=== PATIENT | female | born 1960 | race Two or more races ===

== ENCOUNTER 2021-02-10 06:30 | Outpatient (REF) | payer OTHER, SELFPAY ==
[2021-02-10 12:28] LABS: Alanine Aminotransferase 17 U/L (0-31); Albumin Level 4.2 g/dL (3.5-5.0); Alkaline Phosphatase 83 U/L (39-117); Anion Gap 15 (12-20); Aspartate Amino Transferase 19 U/L (5-31); Bilirubin Total 0.3 mg/dL (0.0-1.0); Blood Urea Nitrogen 15 mg/dL (9-16); Calcium 9.1 mg/dL (8.4-10.2); Carbon Dioxide 25 mmol/L (22-29); Chloride 107 mmol/L (96-108); Cholesterol 204 mg/dL; Estimated Glomerular Filt Rate > 60; Glucose Fasting 97 mg/dL (60-99); HDL Cholesterol 50 mg/dL; LDL Cholesterol Calculated 142 mg/dl; Potassium 4.3 mmol/L (3.3-5.1); Sodium 143 mmol/L (135-145); Total Protein 6.9 g/dL (6.5-8.0); Triglycerides 64 mg/dL
== END 2021-02-10 06:31 | disposition home or self-care (01) ==
LOC: HO.HMGCLDS 06:30
PROVIDERS: PCP Internal Medicine; Visit Provider Internal Medicine
DX: Z00.00 Encounter for general adult medical examination without abnormal findings (principal)
CPT/HCPCS: 36415; 80053; 80061

== ENCOUNTER 2021-09-30 06:20 | Outpatient (REF) | payer OTHER, SELFPAY ==
[2021-09-30 11:56] LABS: Alanine Aminotransferase 19 U/L (0-31); Albumin Level 4.1 g/dL (3.5-5.0); Alkaline Phosphatase 77 U/L (39-117); Anion Gap 13 (12-20); Aspartate Amino Transferase 17 U/L (5-31); Bilirubin Total 0.5 mg/dL (0.0-1.0); Blood Urea Nitrogen 13 mg/dL (9-16); Calcium 9.3 mg/dL (8.4-10.2); Carbon Dioxide 26 mmol/L (22-29); Chloride 105 mmol/L (96-108); Cholesterol 199 mg/dL; Estimated Glomerular Filt Rate > 60; Glucose Fasting 96 mg/dL (60-99); HDL Cholesterol 47 mg/dL; LDL Cholesterol Calculated 135 mg/dl; Potassium 4.4 mmol/L (3.3-5.1); Sodium 140 mmol/L (135-145); Triglycerides 87 mg/dL
[2021-09-30 12:06] LABS: Vitamin D 25-OH Total 25.8 ng/mL (>30)
== END 2021-09-30 06:21 | disposition home or self-care (01) ==
LOC: HO.HMGCLDS 06:20
PROVIDERS: PCP Internal Medicine; Visit Provider Internal Medicine
DX: Z00.00 Encounter for general adult medical examination without abnormal findings (principal); I10 Essential (primary) hypertension; E78.5 Hyperlipidemia, unspecified; E55.9 Vitamin D deficiency, unspecified
CPT/HCPCS: 36415; 80053; 80061; 82306

== ENCOUNTER 2022-02-19 11:01 | Outpatient (REF) | payer OTHER, SELFPAY ==
[2022-02-19 13:52] LABS: Hematocrit 43.2 % (37.0-47.0); Hemoglobin 13.9 g/dl (12.0-16.0); Mean Corpuscular HGB Conc 32.2 g/dl (31.0-35.0); Mean Corpuscular Hemoglobin 27.9 pg (27.0-33.0); Mean Corpuscular Volume 86.6 fL (80.0-98.0); Mean Platelet Volume 9.9 fL (9.4-12.3); Platelet Count 360 X10*3/uL (160-400); Red Blood Count 4.99 X10*6/uL (4.20-5.50); Red Cell Distribution Width 13.6 % (11.0-16.0); White Blood Count 9.3 X10*3/uL (4.8-10.8)
[2022-02-19 13:59] LABS: Appearance Urine TURBID; Color Urine YELLOW; Glucose Urine UA NEG (NEG); Leukocyte Esterase Urine NEG (NEG); Nitrite Urine NEG (NEG); PH 5.5 (5.0-8.0); Specific Gravity - Urine >= 1.030 (1.005-1.025); Urine Blood NEG (NEG); Urine Ketones NEG (NEG); Urine Protein NEG (NEG-TRACE)
[2022-02-19 14:05] LABS: Alanine Aminotransferase 22 U/L (0-31); Albumin Level 4.6 g/dL (3.5-5.0); Alkaline Phosphatase 86 U/L (39-117); Anion Gap 12 (12-20); Aspartate Amino Transferase 20 U/L (5-31); Bilirubin Total 0.6 mg/dL (0.0-1.0); Blood Urea Nitrogen 10 mg/dL (9-16); Calcium 9.8 mg/dL (8.4-10.2); Carbon Dioxide 27 mmol/L (22-29); Chloride 104 mmol/L (96-108); Cholesterol 252 mg/dL; Estimated Glomerular Filt Rate > 60; Glucose Fasting 93 mg/dL (60-99); HDL Cholesterol 56 mg/dL; LDL Cholesterol Calculated 182 mg/dl; Potassium 4.3 mmol/L (3.3-5.1); Sodium 139 mmol/L (135-145); Total Protein 7.9 g/dL (6.5-8.0); Triglycerides 74 mg/dL
[2022-02-19 14:09] LABS: Amorphous Sediment Urine 4+ /LPF; RBC Urine 0 /HPF (0); Squamous Epithelial Cell Urine TRACE /LPF; WBC Urine 0 /HPF (0-4)
[2022-02-19 14:21] LABS: TSH reflex Free T4 0.46 uIU/mL (0.32-4.0)
== END 2022-02-19 11:02 | disposition home or self-care (01) ==
LOC: HO.HMGCLDS 11:01
PROVIDERS: PCP Internal Medicine; Visit Provider Internal Medicine
DX: Z00.00 Encounter for general adult medical examination without abnormal findings (principal); E78.5 Hyperlipidemia, unspecified; I10 Essential (primary) hypertension
CPT/HCPCS: 36415; 80053; 80061; 81001; 84443; 85027

== ENCOUNTER 2022-08-14 06:33 | Outpatient (REF) | payer OTHER, SELFPAY ==
[2022-08-14 11:11] LABS: MANUAL DIFF FLAG NO
[2022-08-14 11:20] LABS: Basophils Percent Auto 0.4 % (0-2); Eosinophils Absolute Auto 0.1 X10*3/uL (0.0-0.4); Eosinophils Percent Auto 1.5 % (0-4); Hematocrit 42.8 % (37.0-47.0); Hemoglobin 13.9 g/dl (12.0-16.0); Imm Gran Abs Auto 0.05 X10*3/uL (0.00-0.03); Imm Gran Pct Auto 0.6 % (0.0-0.4); Lymphocytes Absolute Auto 2.2 X10*3/uL (1.2-4.9); Lymphocytes Percent Auto 25.9 % (20-40); Mean Corpuscular HGB Conc 32.5 g/dl (31.0-35.0); Mean Corpuscular Volume 86.3 fL (80.0-98.0); Monocytes Absolute Auto 0.7 X10*3/uL (0.1-1.2); Monocytes Percent Auto 8.7 % (2-11); Neutrophils Absolute Auto 5.4 x10*3/uL (2.0-8.3); Neutrophils Percent Auto 62.9 % (45-73); Platelet Count 325 X10*3/uL (160-400); Red Blood Count 4.96 X10*6/uL (4.20-5.50); Red Cell Distribution Width 13.4 % (11.0-16.0); White Blood Count 8.5 X10*3/uL (4.8-10.8)
[2022-08-14 11:29] LABS: Alanine Aminotransferase 15 U/L (0-31); Albumin Level 4.3 g/dL (3.5-5.0); Alkaline Phosphatase 73 U/L (39-117); Anion Gap 15 (12-20); Aspartate Amino Transferase 16 U/L (5-31); Blood Urea Nitrogen 14 mg/dL (9-16); Calcium 9.5 mg/dL (8.4-10.2); Carbon Dioxide 24 mmol/L (22-29); Chloride 105 mmol/L (96-108); Cholesterol 227 mg/dL; Estimated Glomerular Filt Rate > 60; Glucose Fasting 108 mg/dL (60-99); HDL Cholesterol 48 mg/dL; LDL Cholesterol Calculated 165 mg/dl; Potassium 4.3 mmol/L (3.3-5.1); Sodium 140 mmol/L (135-145); Total Protein 7.1 g/dL (6.5-8.0); Triglycerides 74 mg/dL
[2022-08-14 11:32] LABS: Bilirubin Total 0.4 mg/dL (0.0-1.0)
[2022-08-14 11:51] LABS: TSH reflex Free T4 0.48 uIU/mL (0.32-4.0)
== END 2022-08-14 06:34 | disposition home or self-care (01) ==
LOC: HO.HMGCLDS 06:33
PROVIDERS: PCP Internal Medicine; Visit Provider Internal Medicine
DX: Z00.00 Encounter for general adult medical examination without abnormal findings (principal); I10 Essential (primary) hypertension; E78.5 Hyperlipidemia, unspecified
CPT/HCPCS: 36415; 80053; 80061; 82306; 84443; 85025

== ENCOUNTER 2023-08-26 06:10 | Outpatient (REF) | payer OTHER, SELFPAY | END 2023-08-26 06:11 | disposition home or self-care (01) | LOC: HO.HMGCLDS 06:10 | PROVIDERS: PCP Internal Medicine; Visit Provider Internal Medicine | DX: Z00.00 Encounter for general adult medical examination without abnormal findings (principal); I10 Essential (primary) hypertension; E78.5 Hyperlipidemia, unspecified | CPT/HCPCS: 36415; 80053; 80061; 82306; 84443; 85025 ==

== ENCOUNTER 2023-08-31 11:12 | Outpatient (AMB) | payer OTHER, SELFPAY ==
[2023-08-31 11:29] VITALS: BP 128/78; PULSE 72; O2SAT 96; BMI 30.7
--- NOTE | 2023-08-31 11:29 | MHC.PC.OV ---
Vital Signs 08/31/23 11:29 Height 5 ft 6 in Weight 190 lb BMI 30.7 BP 128/78 Blood Pressure Location Lt brachial Position Sitting Pulse 72 Pulse Source Pulse Oximeter Pulse Oximetry (%) 96 Oxygen Delivery Method Room Air Intake Visit Reasons: Annual PE Intake Note: Pt is here today for PE. Allergies ampicillin [AMPICILLIN] Allergy (Unknown, Unverified 08/31/23 11:34) rash penicillin V Allergy (Unknown, Verified 08/31/23 11:34) rash Medication List - Last Reconciled 08/31/23 by Yolie Cordero MD amlodipine 10 mg PO DAILY baclofen 10 mg PO BEDTIME metoprolol tartrate 25 mg PO DAILY silver sulfadiazine 1% 1 appl topical BID triamcinolone acetonide 0.025% 1 appl topical BID Tobacco use date assessed: 08/31/23 Dental Screening Dental Screen Date: 08/31/23 Did you have a dental visit in the last 12 months?: Yes Did you have a dental problem in the last 6 months where you did not have access to dental care?: No Was dental information given to patient?: Patient has dentist HPI Annual PE HPI Details Pt presents for PE. [facility] Medical History Paronychia of right middle finger Colonoscopy refused Vitamin D deficiency Mammogram declined Normal Pap smear Hyperlipidemia Osteoarthritis Lower back pain Chronic insomnia HTN (hypertension) Annual physical exam Family History Father No problems noted. Mother No problems noted. Social History Housing: House Patient Tobacco Use Status: Never used Tobacco e-Cigarette/Vaping Use: Never Used Current occupational status: employed Cognitive needs: No Hearing needs: No Vision needs: Yes Questionnaire PHQ-9 Over the last 2 weeks, how often have you been bothered by any of the following problems? 1. Little interest or pleasure in doing things: not at all 2. Feeling down, depressed, or hopeless: not at all 3. Trouble falling or staying asleep, or sleeping too much: not at all 4. Feeling tired or having little energy: not at all 5. Poor appetite or overeating: not at all 6. Feeling bad about yourself - or that you are a failure or have let yourself or your family down: not at all 7. Trouble concentrating on things, such as reading the newspaper or watching television: not at all 8. Moving or speaking so slowly that other people could have noticed. Or the opposite - being so fidgety or restless that you have been moving around a lot more than usual: not at all 9. Thoughts that you would be better off or of hurting yourself in some way: not at all Total score: 0 Depression Screening Interpretation: Negative Depression Screening Done: Yes Source: Developed by Drs. Chris Peterson, Sylvia Templeton, Amari Maat and colleagues, with an educational nancy from [employer]. Thrive Questionnaire Date Thrive assessed: 08/31/23 I am a: Patient What is your living situation today?: I have a steady place to live Within the past 12 months, did the food you bought not last and you didn't have the money to get more?: Never true Within the past 12 months, did you worry whether your food would run out before you got money to buy more?: Never true Do you have trouble paying for medicines?: No Do you have trouble getting transportation to medical appointments?: No Do you have trouble paying your heating and electricity bill?: No Do you have trouble taking care of your child, family member or friend?: No Do you have trouble with day-to-day activities such as bathing, preparing meals, shopping, managing finances, etc.?: No Are you currently unemployed and looking for a job?: No Are you interested in more education?: No Please select the resources that you would like help with: None Currently or been in a relationship where the following occur: no concerns reported AUDIT C Alcohol Use Questionnaire (AUDIT-C) 1. How often do you have a drink containing alcohol?: Never 3. How often do you have six or more drinks on one occasion?: Never Total Score: 0 CLAU-7 AMB Questionnaire CLAU-7 Date CLAU - 7 assessed: 08/31/23 Feeling nervous, anxious, or on edge: 0 = Not at all Not being able to stop or control worryin = Not at all Worrying too much about different things: 0 = Not at all Trouble relaxin = Not at all Being so restless that it is hard to sit still: 0 = Not at all Becoming easily annoyed or irritable: 0 = Not at all Feeling afraid as if something awful might happen: 0 = Not at all Total CLAU-7 score (0-4 normal; 5-9 mild; 10-14 moderate; 15-21 severe): 0 Source: Developed by Drs. Chris Peterson, Sylvia Templeton, Amari Mata and colleagues, with an educational nancy from [employer]. Review of Systems Const All systems reviewed & are unremarkable except as noted in HPI and below Reports no additional complaints Eyes Reports no additional complaints ENT Reports no additional complaints Card Reports no additional complaints Resp Reports no additional complaints GI Reports no additional complaints Reports no additional complaints Physical exam (Primary Care) Vital Signs: Last Vital Signs Pulse 72 08/31/23 11:29 BP 128/78 08/31/23 11:29 Pulse Ox 96 08/31/23 11:29 Oxygen Delivery Method Room Air 08/31/23 11:29 BMI result Body Mass Index 30.7 Tobacco/Smoking Status: Tobacco use Status Tobacco use date assessed 08/31/23 08/31/23 11:36 Patient Tobacco Use Status Never used Tobacco 08/31/23 11:36 e-Cigarette/Vaping Use Never Used 08/31/23 11:29 PHQ-9: PHQ-9 Score PHQ-9: Total score 0 08/31/23 11:37 Depression Screening Interpretation: Negative Thrive Assessment: Date of Thrive Assessment Date Thrive assessed 08/31/23 08/31/23 11:36 Currently or been in a relationship where the following occur: no concerns reported Const General: no acute distress HENMT Face and sinus: Yes normal facial exam Throat: Yes posterior oropharynx normal Neck Neck: Yes no lymphadenopathy and Yes supple Chest Breast/axilla inspection: normal inspection of the breasts Breast/axilla palpation: normal palpation of the breasts and normal palpation of the axillae Resp Effort & Inspection: normal respiratory effort Auscultation: clear to auscultation bilaterally Cardio Rhythm: regular rhythm Heart sounds: S1 normal heart sound present and S2 normal heart sound present GI Inspection: Yes normal to inspection Palpation (GI): Soft to palpation Percussion: Yes normal to percussion Auscultation: normal bowel sounds Assessment and Plan Assessment & Plan (1) HTN (hypertension): Code(s): I10 - Essential (primary) hypertension Plan: cont current meds (2) Hyperlipidemia: Comment: Patient refused to take statins Code(s): E78.5 - Hyperlipidemia, unspecified Plan: cont low cholesterol diet (3) Annual physical exam: Comment: Patient refused mammogram and colonoscopy Code(s): Z00.00 - Encounter for general adult medical examination without abnormal findings Orders: Orders Lipid Panel 6 Months E78.5 - Hyperlipidemia, unspecified, I10 - Essential (primary) hypertension TSH reflex Free T4 6 Months E78.5 - Hyperlipidemia, unspecified, I10 - Essential (primary) hypertension Comprehensive [place]. Panel Fast 6 Months E78.5 - Hyperlipidemia, unspecified, I10 - Essential (primary) hypertension Coding Level of Care Code Est Pt Prev Care 40-64y(10753) Diagnoses HTN (hypertension) I10 Hyperlipidemia E78.5 Annual physical exam Z00.00
== END 2023-08-31 12:04 | disposition home or self-care (01) ==
PROVIDERS: Visit Provider Internal Medicine
DX: I10 Essential (primary) hypertension (principal); E78.5 Hyperlipidemia, unspecified; Z00.00 Encounter for general adult medical examination without abnormal findings
CPT/HCPCS: 99396

== ENCOUNTER 2024-02-23 06:46 | Outpatient (REF) | payer OTHER, SELFPAY ==
[2024-02-23 10:58] LABS: Alanine Aminotransferase 17 U/L (0-31); Albumin Level 3.9 g/dL (3.5-5.0); Alkaline Phosphatase 69 U/L (39-117); Anion Gap 11 (12-20); Aspartate Amino Transferase 16 U/L (5-31); Bilirubin Total 0.4 mg/dL (0.0-1.0); Blood Urea Nitrogen 12 mg/dL (9-16); Calcium 9.2 mg/dL (8.4-10.2); Carbon Dioxide 27 mmol/L (22-29); Chloride 107 mmol/L (96-108); Cholesterol 223 mg/dL (<200); Estimated Glomerular Filt Rate > 60; Glucose Fasting 100 mg/dL (60-99); HDL Cholesterol 56 mg/dL (>40); LDL Cholesterol Calculated 150 mg/dL (<100); Potassium 4.1 mmol/L (3.3-5.1); Sodium 141 mmol/L (135-145); Total Protein 7.2 g/dL (6.5-8.0); Triglycerides 85 mg/dL (<150)
[2024-02-23 11:14] LABS: TSH reflex Free T4 0.74 uIU/mL (0.32-4.0)
== END 2024-02-23 06:47 | disposition home or self-care (01) ==
LOC: HO.HMGCLDS 06:46
PROVIDERS: PCP Internal Medicine; Visit Provider Internal Medicine
DX: I10 Essential (primary) hypertension (principal); E78.5 Hyperlipidemia, unspecified
CPT/HCPCS: 36415; 80053; 80061; 84443

== ENCOUNTER 2024-02-27 10:43 | Outpatient (AMB) | payer OTHER, SELFPAY ==
[2024-02-27 10:45] VITALS: BP 134/74; PULSE 71; O2SAT 98; BMI 31.5
--- NOTE | 2024-02-27 10:45 | A.OFFPC_ITS ---
Vital Signs 02/27/24 10:45 Height 5 ft 6 in Weight 195 lb BMI 31.5 BP 134/74 Blood Pressure Location Lt brachial Position Sitting Pulse 71 Pulse Source Pulse Oximeter Pulse Oximetry (%) 98 Oxygen Delivery Method Room Air Intake Visit Reasons: 6 month HTN Intake Note: Pt is here today for 6 months follow up visit. Allergies ampicillin [AMPICILLIN] Allergy (Unknown, Unverified 02/27/24 10:45) rash penicillin V Allergy (Unknown, Verified 02/27/24 10:45) rash Medication List - Last Reconciled 02/27/24 by Yolie Cordero MD amlodipine 10 mg PO DAILY baclofen 10 mg PO BEDTIME metoprolol tartrate 25 mg PO DAILY silver sulfadiazine 1% 1 appl topical BID triamcinolone acetonide 0.025% 1 appl topical BID Tobacco use date assessed: 02/27/24 Dental Screening Dental Screen Date: 02/27/24 Did you have a dental visit in the last 12 months?: Yes Did you have a dental problem in the last 6 months where you did not have access to dental care?: No Was dental information given to patient?: Patient has dentist HPI 6 month HTN HPI Details Pt presents for f/u HTN, stable on meds PFSH Medical History (Updated 02/27/24 @ 11:24 by Yolie Cordero MD) Paronychia of right middle finger Colonoscopy refused Vitamin D deficiency Mammogram declined Normal Pap smear Hyperlipidemia Osteoarthritis Lower back pain Chronic insomnia HTN (hypertension) Annual physical exam Surgical History Hx of cholecystectomy Family History Father No problems noted. Mother No problems noted. Social History Housing: House Patient Tobacco Use Status: Never used Tobacco e-Cigarette/Vaping Use: Never Used service: No Current occupational status: employed Cognitive needs: No Hearing needs: No Vision needs: Yes Questionnaire Thrive Questionnaire Date Thrive assessed: 08/31/23 AUDIT C Alcohol Use Questionnaire (AUDIT-C) 1. How often do you have a drink containing alcohol?: Never 3. How often do you have six or more drinks on one occasion?: Never Total Score: 0 CLAU-7 AMB Questionnaire CLAU-7 Date CLAU - 7 assessed: 08/31/23 Source: Developed by Drs. Chris Peterson, Sylvia Templeton, Amari Mata and colleagues, with an educational nancy from [employer]. Review of Systems Const All systems reviewed & are unremarkable except as noted in HPI and below Reports no additional complaints Eyes Reports no additional complaints ENT Reports no additional complaints Card Reports no additional complaints Resp Reports no additional complaints GI Reports no additional complaints Reports no additional complaints Physical exam (Primary Care) Vital Signs: Last Vital Signs Pulse 71 02/27/24 10:45 BP 134/74 02/27/24 10:45 Pulse Ox 98 02/27/24 10:45 Oxygen Delivery Method Room Air 02/27/24 10:45 BMI result Body Mass Index 31.5 Tobacco/Smoking Status: Tobacco use Status Tobacco use date assessed 02/27/24 02/27/24 10:51 Patient Tobacco Use Status Never used Tobacco 02/27/24 10:51 e-Cigarette/Vaping Use Never Used 02/27/24 10:51 Thrive Assessment: Date of Thrive Assessment Date Thrive assessed 08/31/23 02/27/24 10:51 Const General: no acute distress HENMT Head: Yes normal to inspection Resp Effort & Inspection: normal respiratory effort Auscultation: clear to auscultation bilaterally Cardio Rhythm: regular rhythm Heart sounds: S1 normal heart sound present and S2 normal heart sound present GI Inspection: Yes normal to inspection Palpation (GI): Soft to palpation Percussion: Yes normal to percussion Assessment and Plan Assessment & Plan (1) Colonoscopy refused: Comment: 08/2021, 02/2024 Code(s): Z53.20 - Procedure and treatment not carried out because of patient's decision for unspecified reasons (2) Mammogram declined: Comment: 08/2021, 02/2024 Code(s): Z53.20 - Procedure and treatment not carried out because of patient's decision for unspecified reasons (3) Hyperlipidemia: Comment: Patient refused to take statins, 03/14 Code(s): E78.5 - Hyperlipidemia, unspecified Plan: Low-cholesterol diet increase physical activity weight loss discussed with the patient return for physical in 6 months with a fasting labs before (4) HTN (hypertension): Code(s): I10 - Essential (primary) hypertension Plan: Continue current medications (5) Vitamin D deficiency: Code(s): E55.9 - Vitamin D deficiency, unspecified Orders: Orders Lipid Panel 6 Months E55.9 - Vitamin D deficiency, unspecified, E78.5 - Hyperlipidemia, unspecified, I10 - Essential (primary) hypertension, Z00.00 - Encounter for general adult medical examination without abnormal findings Hemoglobin A1c 6 Months E55.9 - Vitamin D deficiency, unspecified, E78.5 - Hyperlipidemia, unspecified, I10 - Essential (primary) hypertension, Z00.00 - Encounter for general adult medical examination without abnormal findings Vitamin D 25-OH Total 6 Months E55.9 - Vitamin D deficiency, unspecified, E78.5 - Hyperlipidemia, unspecified, I10 - Essential (primary) hypertension, Z00.00 - Encounter for general adult medical examination without abnormal findings Comprehensive [place]. Panel Fast 6 Months E55.9 - Vitamin D deficiency, unspecified, E78.5 - Hyperlipidemia, unspecified, I10 - Essential (primary) hypertension, Z00.00 - Encounter for general adult medical examination without abnormal findings Complete Blood Count Auto Diff 6 Months E55.9 - Vitamin D deficiency, unspecified, E78.5 - Hyperlipidemia, unspecified, I10 - Essential (primary) hypertension, Z00.00 - Encounter for general adult medical examination without abnormal findings TSH reflex Free T4 6 Months E55.9 - Vitamin D deficiency, unspecified, E78.5 - Hyperlipidemia, unspecified, I10 - Essential (primary) hypertension, Z00.00 - Encounter for general adult medical examination without abnormal findings Coding Level of Care Code Est Pt Level 4 (50304) Diagnoses Colonoscopy refused Z53.20 Mammogram declined Z53.20 Hyperlipidemia E78.5 HTN (hypertension) I10 Vitamin D deficiency E55.9
== END 2024-02-27 11:31 | disposition home or self-care (01) ==
PROVIDERS: PCP Internal Medicine; Visit Provider Internal Medicine
DX: Z53.20 Procedure and treatment not carried out because of patient's decision for unspecified reasons (principal); E78.5 Hyperlipidemia, unspecified; I10 Essential (primary) hypertension; E55.9 Vitamin D deficiency, unspecified
CPT/HCPCS: 99214

== ENCOUNTER 2024-03-26 11:44 | Outpatient (AMB) | payer OTHER, SELFPAY ==
--- NOTE | 2024-03-26 11:45 | A.OFFPC_ITS ---
Vital Signs 03/26/24 11:46 Height 5 ft 6 in Weight 188 lb BMI 30.3 BP 124/80 Blood Pressure Location Lt brachial Position Sitting Pulse 63 Pulse Source Pulse Oximeter Pulse Oximetry (%) 95 Oxygen Delivery Method Room Air Intake Visit Reasons: L ear pain Intake Note: Pt is here today for a sick visit. Pt c/o L ear pain for last 2 days. Pt also states that she he as little cough. Allergies ampicillin [AMPICILLIN] Allergy (Unknown, Unverified 03/26/24 11:50) rash penicillin V Allergy (Unknown, Verified 03/26/24 11:50) rash Medication List - Last Reconciled 03/26/24 by Yolie Cordero MD amlodipine 10 mg PO DAILY baclofen 10 mg PO BEDTIME furosemide (Lasix) 20 mg PO DAILY metoprolol tartrate 25 mg PO DAILY silver sulfadiazine 1% 1 appl topical BID triamcinolone acetonide 0.025% 1 appl topical BID Tobacco use date assessed: 02/27/24 Dental Screening Dental Screen Date: 02/27/24 HPI L ear pain HPI Details Pt c/o 1 week productive cough, nasal congestion, and left ear feeling blocked. She denies fever pleurisy ear pain. Patient has been taking [id number] cough medications with good relief. Hypertension is controlled on current medications [facility] Medical History Paronychia of right middle finger Colonoscopy refused Vitamin D deficiency Mammogram declined Normal Pap smear Hyperlipidemia Osteoarthritis Lower back pain Chronic insomnia HTN (hypertension) Annual physical exam Surgical History Hx of cholecystectomy Family History Father No problems noted. Mother No problems noted. Social History Housing: House Patient Tobacco Use Status: Never used Tobacco e-Cigarette/Vaping Use: Never Used service: No Current occupational status: employed Cognitive needs: No Hearing needs: No Vision needs: Yes Questionnaire Thrive Questionnaire Date Thrive assessed: 08/31/23 CLAU-7 AMB Questionnaire CLAU-7 Date CLAU - 7 assessed: 08/31/23 Source: Developed by Sylvia Crane B.W. Jareth, Amari Mata and colleagues, with an educational nancy from [employer]. Review of Systems Const All systems reviewed & are unremarkable except as noted in HPI and below ENT Reports no additional complaints Card Reports no additional complaints Resp Reports no additional complaints GI Reports no additional complaints Reports no additional complaints Physical exam (Primary Care) Vital Signs: Last Vital Signs Pulse 63 03/26/24 11:46 BP 124/80 03/26/24 11:46 Pulse Ox 95 03/26/24 11:46 Oxygen Delivery Method Room Air 03/26/24 11:46 BMI result Body Mass Index 30.3 Tobacco/Smoking Status: Tobacco use Status Tobacco use date assessed 02/27/24 03/26/24 11:50 Patient Tobacco Use Status Never used Tobacco 03/26/24 11:50 e-Cigarette/Vaping Use Never Used 03/26/24 11:50 Thrive Assessment: Date of Thrive Assessment Date Thrive assessed 08/31/23 03/26/24 11:50 Const General: no acute distress HENMT Head: Yes normal to inspection Ears: TM's normal bilaterally General nose exam: Abnormal mucous membranes and turbinates present erythematous Face and sinus: Yes normal facial exam and No sinus tenderness Throat: Yes posterior oropharynx normal Neck Neck: Yes no lymphadenopathy Resp Effort & Inspection: normal respiratory effort Auscultation: clear to auscultation bilaterally Cardio Rhythm: regular rhythm Heart sounds: S1 normal heart sound present and S2 normal heart sound present Assessment and Plan Assessment & Plan (1) URI (upper respiratory infection): Code(s): J06.9 - Acute upper respiratory infection, unspecified Plan: SUPPORTIVE CARE DISCUSSED WITH THE PATIENT (2) HTN (hypertension): Code(s): I10 - Essential (primary) hypertension Plan: Continue current medications Medications: New furosemide (Lasix) 20 mg PO DAILY 20 tabs 0RF Coding Level of Care Code Est Pt Level 3 (72093) Diagnoses URI (upper respiratory infection) J06.9 HTN (hypertension) I10
[2024-03-26 11:46] VITALS: BP 124/80; PULSE 63; O2SAT 95; BMI 30.3
== END 2024-03-26 15:09 | disposition home or self-care (01) ==
LOC: HO.HMGC 11:44
PROVIDERS: PCP Internal Medicine; Visit Provider Internal Medicine
DX: J06.9 Acute upper respiratory infection, unspecified (principal); I10 Essential (primary) hypertension
CPT/HCPCS: 99213

== ENCOUNTER 2024-09-11 06:14 | Outpatient (REF) | payer OTHER, SELFPAY ==
[2024-09-11 10:11] LABS: MANUAL DIFF FLAG NO
[2024-09-11 10:17] LABS: Basophils Percent Auto 0.5 % (0-2); Eosinophils Absolute Auto 0.3 X10*3/uL (0.0-0.4); Eosinophils Percent Auto 3.3 % (0-4); Hematocrit 41.3 % (37.0-47.0); Hemoglobin 13.2 g/dl (12.0-16.0); Imm Gran Abs Auto 0.05 X10*3/uL (0.00-0.03); Imm Gran Pct Auto 0.6 % (0.0-0.4); Lymphocytes Absolute Auto 2.6 X10*3/uL (1.2-4.9); Lymphocytes Percent Auto 29.6 % (20-40); Mean Corpuscular Hemoglobin 27.8 pg (27.0-33.0); Mean Corpuscular Volume 87.1 fL (80.0-98.0); Mean Platelet Volume 10.1 fL (9.4-12.3); Monocytes Absolute Auto 0.6 X10*3/uL (0.1-1.2); Monocytes Percent Auto 7.4 % (2-11); Neutrophils Absolute Auto 5.1 x10*3/uL (2.0-8.3); Neutrophils Percent Auto 58.6 % (45-73); Platelet Count 331 X10*3/uL (160-400); Red Blood Count 4.74 X10*6/uL (4.20-5.50); Red Cell Distribution Width 13.4 % (11.0-16.0); White Blood Count 8.7 X10*3/uL (4.8-10.8)
[2024-09-11 10:55] LABS: Alanine Aminotransferase 17 U/L (0-31); Albumin Level 4.1 g/dL (3.5-5.0); Alkaline Phosphatase 77 U/L (39-117); Anion Gap 12 (12-20); Aspartate Amino Transferase 26 U/L (5-31); Bilirubin Total 0.5 mg/dL (0.0-1.0); Blood Urea Nitrogen 13 mg/dL (9-16); Calcium 9.7 mg/dL (8.4-10.2); Carbon Dioxide 26 mmol/L (22-29); Chloride 109 mmol/L (96-108); Cholesterol 203 mg/dL (<200); Estimated Glomerular Filt Rate > 60; Glucose Fasting 93 mg/dL (60-99); HDL Cholesterol 50 mg/dL (>40); LDL Cholesterol Calculated 136 mg/dL (<100); Potassium 4.1 mmol/L (3.3-5.1); Sodium 143 mmol/L (135-145); Total Protein 7.1 g/dL (6.5-8.0); Triglycerides 87 mg/dL (<150)
[2024-09-11 11:01] LABS: Estimated Average Glucose 108 mg/dL; Hemoglobin A1C 176.1078 umol/L; Hemoglobin A1c % 5.4 % (<6.0); Total Hemoglobin (HGBA1C) 5007.5056 umol/L
[2024-09-11 11:02] LABS: TSH reflex Free T4 0.91 uIU/mL (0.32-4.0); Vitamin D 25-OH Total 42.7 ng/mL (>30)
== END 2024-09-11 06:15 | disposition home or self-care (01) ==
LOC: HO.HMGCLDS 06:14
PROVIDERS: PCP Internal Medicine; Visit Provider Internal Medicine
DX: Z00.00 Encounter for general adult medical examination without abnormal findings (principal); I10 Essential (primary) hypertension; E78.5 Hyperlipidemia, unspecified; E55.9 Vitamin D deficiency, unspecified
CPT/HCPCS: 36415; 80053; 80061; 82306; 83036; 84443; 85025

== ENCOUNTER 2024-09-13 10:13 | Outpatient (AMB) | payer OTHER, SELFPAY ==
[2024-09-13 11:37] VITALS: BP 128/74; PULSE 68; O2SAT 96; BMI 29.9
--- NOTE | 2024-09-13 11:37 | A.OFFPC_ITS ---
Vital Signs 09/13/24 11:37 Height 5 ft 6 in Weight 185 lb BMI 29.9 BP 128/74 Blood Pressure Location Lt brachial Position Sitting Pulse 68 Pulse Source Pulse Oximeter Pulse Oximetry (%) 96 Oxygen Delivery Method Room Air Intake Visit Reasons: Annual PE Intake Note: Pt is here today for PE. Allergies ampicillin [AMPICILLIN] Allergy (Unknown, Unverified 09/13/24 11:38) rash penicillin V Allergy (Unknown, Verified 09/13/24 11:38) rash Medication List - Last Reconciled 09/13/24 by Yolie Cordero MD amlodipine 10 mg PO DAILY baclofen 10 mg PO BEDTIME furosemide (Lasix) 20 mg PO DAILY metoprolol tartrate 25 mg PO DAILY silver sulfadiazine 1% 1 appl topical BID triamcinolone acetonide 0.025% 1 appl topical BID Tobacco use date assessed: 09/13/24 Dental Screening Dental Screen Date: 02/27/24 HPI Annual PE HPI Details Pt presents for PE. [facility] Medical History Paronychia of right middle finger Colonoscopy refused Vitamin D deficiency Mammogram declined Normal Pap smear Hyperlipidemia Osteoarthritis Lower back pain Chronic insomnia HTN (hypertension) Annual physical exam Surgical History Hx of cholecystectomy Family History Father No problems noted. Mother No problems noted. Social History Housing: House Patient Tobacco Use Status: Never used Tobacco e-Cigarette/Vaping Use: Never Used service: No Current occupational status: employed Cognitive needs: No Hearing needs: No Vision needs: Yes Questionnaire PHQ-9 Over the last 2 weeks, how often have you been bothered by any of the following problems? 1. Little interest or pleasure in doing things: not at all 2. Feeling down, depressed, or hopeless: not at all 3. Trouble falling or staying asleep, or sleeping too much: not at all 4. Feeling tired or having little energy: not at all 5. Poor appetite or overeating: not at all 6. Feeling bad about yourself - or that you are a failure or have let yourself or your family down: not at all 7. Trouble concentrating on things, such as reading the newspaper or watching television: not at all 8. Moving or speaking so slowly that other people could have noticed. Or the opposite - being so fidgety or restless that you have been moving around a lot more than usual: not at all 9. Thoughts that you would be better off or of hurting yourself in some way: not at all Total score: 0 Depression Screening Interpretation: Negative Depression Screening Done: Yes 33279 - PHQ-9 Billing: Yes Source: Developed by Drs. Chris Peterson, Sylvia Templeton, Amari Mata and colleagues, with an educational nancy from [employer]. Thrive Questionnaire Date Thrive assessed: 09/13/24 I am a: Patient What is your living situation today?: I have a steady place to live Within the past 12 months, did the food you bought not last and you didn't have the money to get more?: I choose not to answer this question Within the past 12 months, did you worry whether your food would run out before you got money to buy more?: I choose not to answer this question Do you have trouble paying for medicines?: I choose not to answer this question Do you have trouble getting transportation to medical appointments?: I choose not to answer this question Do you have trouble paying your heating and electricity bill?: I choose not to answer this question Do you have trouble taking care of your child, family member or friend?: I choose not to answer this question Do you have trouble with day-to-day activities such as bathing, preparing meals, shopping, managing finances, etc.?: I choose not to answer this question Are you currently unemployed and looking for a job?: I choose not to answer this question Are you interested in more education?: I choose not to answer this question Please select the resources that you would like help with: None Currently or been in a relationship where the following occur: I choose not to answer THRIVE Score: 0 AUDIT C Alcohol Use Questionnaire (AUDIT-C) 1. How often do you have a drink containing alcohol?: Never Total Score: 0 CLAU-7 AMB Questionnaire CLAU-7 Date CLAU - 7 assessed: 09/13/24 Feeling nervous, anxious, or on edge: 0 = Not at all Not being able to stop or control worryin = Not at all Worrying too much about different things: 0 = Not at all Trouble relaxin = Not at all Being so restless that it is hard to sit still: 0 = Not at all Becoming easily annoyed or irritable: 0 = Not at all Feeling afraid as if something awful might happen: 0 = Not at all Total CLAU-7 score (0-4 normal; 5-9 mild; 10-14 moderate; 15-21 severe): 0 Source: Developed by Drs. Chris Peterson, Sylvia Templeton, Amari Mata and colleagues, with an educational nancy from [employer]. CLAU-7 Assessment Billing CLAU-7 Assessment Tool: CLAU-7 Assessment 88560 Review of Systems Const All systems reviewed & are unremarkable except as noted in HPI and below Reports no additional complaints Eyes Reports no additional complaints ENT Reports no additional complaints Card Reports no additional complaints Resp Reports no additional complaints GI Reports no additional complaints Reports no additional complaints Physical exam (Primary Care) Vital Signs: Last Vital Signs Pulse 68 09/13/24 11:37 BP 128/74 09/13/24 11:37 Pulse Ox 96 09/13/24 11:37 Oxygen Delivery Method Room Air 09/13/24 11:37 BMI result Body Mass Index 29.9 Tobacco/Smoking Status: Tobacco use Status Tobacco use date assessed 09/13/24 09/13/24 11:41 Patient Tobacco Use Status Never used Tobacco 09/13/24 11:38 e-Cigarette/Vaping Use Never Used 09/13/24 11:38 PHQ-9: PHQ-9 Score PHQ-9: Total score 0 09/13/24 12:07 Depression Screening Interpretation: Negative Thrive Assessment: Date of Thrive Assessment Date Thrive assessed 09/13/24 09/13/24 11:41 Currently or been in a relationship where the following occur: I choose not to answer Const General: no acute distress HENMT Head: Yes normal to inspection Ears: hearing grossly normal bilaterally Face and sinus: Yes normal facial exam Eyes General: appearance normal, both eyes and all related structures Resp Effort & Inspection: normal respiratory effort Auscultation: clear to auscultation bilaterally Cardio Rhythm: regular rhythm Heart sounds: S1 normal heart sound present and S2 normal heart sound present GI Inspection: Yes normal to inspection Palpation (GI): Soft to palpation Percussion: Yes normal to percussion Auscultation: normal bowel sounds Coding Level of Care Code Est Pt Prev Care 40-64y(77635) Diagnoses HTN (hypertension) I10 Hyperlipidemia E78.5 Annual physical exam Z00.00 Additional Codes CLAU-7 Assessment Billing - CLAU-7 Assessment Tool: CLAU-7 Assessment 96897 ([id number]) Assessment & Plan Assessment & Plan (1) HTN (hypertension): Code(s): I10 - Essential (primary) hypertension Category: Medical Plan: Continue current medications (2) Hyperlipidemia: Comment: Patient refused to take statins, 03/14 Code(s): E78.5 - Hyperlipidemia, unspecified Category: Medical Plan: Low-cholesterol diet increase physical activity weight loss discussed with the patient (3) Annual physical exam: Comment: Patient refused mammogram and colonoscopy Code(s): Z00.00 - Encounter for general adult medical examination without abnormal findi ngs Category: Medical Plan: Well-balanced diet regular physical activity discussed with the patient. She refused mammogram and colonoscopy Orders: Orders Comprehensive [place]. Panel Fast 6 Months E78.5 - Hyperlipidemia, unspecified, I10 - Essential (primary) hypertension Lipid Panel 6 Months E78.5 - Hyperlipidemia, unspecified, I10 - Essential (primary) hypertension Medications: Refilled amlodipine at bedtime 10 mg PO DAILY 90 tabs 3RF metoprolol tartrate take 1 tablet by mouth daily with food 25 mg PO DAILY 90 tabs 3RF Discontinued silver sulfadiazine 1% apply a 1.5 mm thickness Discontinued Reason: Doctor's Order 1 appl topical BID 50 grams 0RF baclofen Discontinued Reason: Doctor's Order 10 mg PO BEDTIME 30 tabs 0RF
== END 2024-09-13 14:43 | disposition home or self-care (01) ==
PROVIDERS: PCP Internal Medicine; Visit Provider Internal Medicine
DX: I10 Essential (primary) hypertension (principal); E78.5 Hyperlipidemia, unspecified; Z00.00 Encounter for general adult medical examination without abnormal findings

== ENCOUNTER → 2024-09-13 10:13 | Outpatient (BNVA) | payer OTHER, SELFPAY | PROVIDERS: PCP Internal Medicine; Visit Provider Internal Medicine | DX: Z00.00 Encounter for general adult medical examination without abnormal findings (principal); I10 Essential (primary) hypertension; E78.5 Hyperlipidemia, unspecified; Z79.899 Other long term (current) drug therapy | CPT/HCPCS: 96127 ==

== ENCOUNTER 2025-03-07 06:30 | Outpatient (REF) | payer OTHER, SELFPAY ==
[2025-03-07 10:59] LABS: Alanine Aminotransferase 22 U/L (0-31); Anion Gap 12 (12-20); Aspartate Amino Transferase 25 U/L (5-31); Bilirubin Total 0.5 mg/dL (0.0-1.0); Blood Urea Nitrogen 14 mg/dL (9-16); Calcium 9.4 mg/dL (8.4-10.2); Carbon Dioxide 26 mmol/L (22-29); Chloride 108 mmol/L (96-108); Cholesterol 215 mg/dL (<200); Estimated Glomerular Filt Rate > 60; Glucose Fasting 97 mg/dL (60-99); HDL Cholesterol 48 mg/dL (>40); LDL Cholesterol Calculated 151 mg/dL (<100); Potassium 4.2 mmol/L (3.3-5.1); Sodium 142 mmol/L (135-145); Total Protein 7.3 g/dL (6.5-8.0); Triglycerides 81 mg/dL (<150)
[2025-03-07 11:00] LABS: Alkaline Phosphatase 82 U/L (39-117)
== END 2025-03-07 06:31 | disposition home or self-care (01) ==
LOC: HO.HMGCLDS 06:30
PROVIDERS: PCP Internal Medicine; Visit Provider Internal Medicine
DX: I10 Essential (primary) hypertension (principal); E78.5 Hyperlipidemia, unspecified
CPT/HCPCS: 36415; 80053; 80061

== ENCOUNTER 2025-03-13 09:00 | Outpatient (AMB) | payer OTHER, SELFPAY ==
[2025-03-13 09:09] VITALS: BP 128/66; PULSE 68; RESP 18; TEMP 36.8; O2SAT 95; BMI 32.3
--- NOTE | 2025-03-13 09:09 | MHC.PC.OV ---
Vital Signs 03/13/25 09:09 Height 5 ft 6 in Weight 200 lb BMI 32.3 BP 128/66 Blood Pressure Location Lt brachial Position Sitting Respiration 18 Pulse 68 Pulse Source Pulse Oximeter Temp 98.3 F Temp Source Oral Pulse Oximetry (%) 95 Oxygen Delivery Method Room Air Intake Visit Reasons: 6m follow up Intake Note: Pt is here today for 6 months follow up visit. Allergies ampicillin [AMPICILLIN] Allergy (Unknown, Unverified 03/13/25 09:10) rash penicillin V Allergy (Unknown, Verified 03/13/25 09:10) rash Medication List - Last Reconciled 03/13/25 by Yolie Cordero MD amlodipine 10 mg PO DAILY furosemide (Lasix) 20 mg PO DAILY metoprolol tartrate 25 mg PO DAILY triamcinolone acetonide 0.025% 1 appl topical BID Tobacco use date assessed: 03/13/25 Fall risk assessment: No Falls in past year Last assessed Fall Risk: 03/13/25 Dental Screening Dental Screen Date: 03/13/25 Did you have a dental visit in the last 12 months?: Yes Did you have a dental problem in the last 6 months where you did not have access to dental care?: No Was dental information given to patient?: Patient has dentist HPI 6m follow up HPI Details Pt presents for follow-up on hypertension controlled on current medications. [facility] Medical History Paronychia of right middle finger Colonoscopy refused Vitamin D deficiency Mammogram declined Normal Pap smear Hyperlipidemia Osteoarthritis Lower back pain Chronic insomnia HTN (hypertension) Annual physical exam Surgical History Hx of cholecystectomy Family History Father No problems noted. Mother No problems noted. Social History Housing: House Patient Tobacco Use Status: Never used Tobacco e-Cigarette/Vaping Use: Never Used service: No Current occupational status: employed Cognitive needs: No Hearing needs: No Vision needs: Yes Questionnaire PHQ-9 Over the last 2 weeks, how often have you been bothered by any of the following problems? 1. Little interest or pleasure in doing things: not at all 2. Feeling down, depressed, or hopeless: not at all 3. Trouble falling or staying asleep, or sleeping too much: not at all 4. Feeling tired or having little energy: not at all 5. Poor appetite or overeating: not at all 6. Feeling bad about yourself - or that you are a failure or have let yourself or your family down: not at all 7. Trouble concentrating on things, such as reading the newspaper or watching television: not at all 8. Moving or speaking so slowly that other people could have noticed. Or the opposite - being so fidgety or restless that you have been moving around a lot more than usual: not at all 9. Thoughts that you would be better off or of hurting yourself in some way: not at all Total score: 0 Depression Screening Interpretation: Negative Depression Screening Done: Yes 16507 - PHQ-9 Billing: Yes Source: Developed by Drs. Chris Peterson, Sylvia Templeton, Amari Mata and colleagues, with an educational nancy from [employer]. Thrive Questionnaire Date Thrive assessed: 03/13/25 I am a: Patient What is your living situation today?: I have a steady place to live Within the past 12 months, did the food you bought not last and you didn't have the money to get more?: I choose not to answer this question Within the past 12 months, did you worry whether your food would run out before you got money to buy more?: I choose not to answer this question Do you have trouble paying for medicines?: I choose not to answer this question Do you have trouble getting transportation to medical appointments?: I choose not to answer this question Do you have trouble paying your heating and electricity bill?: I choose not to answer this question Do you have trouble taking care of your child, family member or friend?: I choose not to answer this question Do you have trouble with day-to-day activities such as bathing, preparing meals, shopping, managing finances, etc.?: I choose not to answer this question Are you currently unemployed and looking for a job?: I choose not to answer this question Are you interested in more education?: I choose not to answer this question Please select the resources that you would like help with: None Currently or been in a relationship where the following occur: I choose not to answer THRIVE Score: 0 CLAU-7 AMB Questionnaire CLAU-7 Date CLAU - 7 assessed: 03/13/25 Feeling nervous, anxious, or on edge: 0 = Not at all Not being able to stop or control worryin = Not at all Worrying too much about different things: 0 = Not at all Trouble relaxin = Not at all Being so restless that it is hard to sit still: 0 = Not at all Becoming easily annoyed or irritable: 0 = Not at all Feeling afraid as if something awful might happen: 0 = Not at all Total CLAU-7 score (0-4 normal; 5-9 mild; 10-14 moderate; 15-21 severe): 0 Source: Developed by Drs. Chris Peterson, Sylvia Templeton, Amari Mata and colleagues, with an educational nancy from [employer]. CLAU-7 Assessment Billing CLAU-7 Assessment Tool: CLAU-7 Assessment 02645 Review of Systems Const All systems reviewed & are unremarkable except as noted in HPI and below Eyes Reports no additional complaints Card Reports no additional complaints Resp Reports no additional complaints GI Reports no additional complaints Reports no additional complaints Physical exam (Primary Care) Vital Signs: Last Vital Signs Temp 98.3 F 03/13/25 09:09 Pulse 68 03/13/25 09:09 Resp 18 03/13/25 09:09 BP 128/66 03/13/25 09:09 Pulse Ox 95 03/13/25 09:09 Oxygen Delivery Method Room Air 03/13/25 09:09 BMI result Body Mass Index 32.3 Tobacco/Smoking Status: Tobacco use Status Tobacco use date assessed 03/13/25 03/13/25 09:14 Patient Tobacco Use Status Never used Tobacco 03/13/25 09:10 e-Cigarette/Vaping Use Never Used 03/13/25 09:10 PHQ-9: PHQ-9 Score PHQ-9: Total score 0 03/13/25 09:14 Depression Screening Interpretation: Negative Thrive Assessment: Date of Thrive Assessment Date Thrive assessed 03/13/25 03/13/25 09:14 Currently or been in a relationship where the following occur: I choose not to answer Const General: no acute distress HENMT Head: Yes normal to inspection Face and sinus: Yes normal facial exam Eyes General: appearance normal, both eyes and all related structures Neck Neck: Yes no lymphadenopathy and Yes supple Resp Effort & Inspection: normal respiratory effort Auscultation: clear to auscultation bilaterally Cardio Rhythm: regular rhythm Heart sounds: S1 normal heart sound present and S2 normal heart sound present Coding Level of Care Code Est Pt Level 3 (74918) Diagnoses HTN (hypertension) I10 Hyperlipidemia E78.5 Onychomycosis B35.1 Additional Codes CLAU-7 Assessment Billing - CLAU-7 Assessment Tool: CLAU-7 Assessment 11975 ([id number]) PHQ-9 - 89453 - PHQ-9 Billing: Yes ([id number]) Assessment & Plan Assessment & Plan (1) HTN (hypertension): Code(s): I10 - Essential (primary) hypertension Category: Medical Plan: Continue current medications (2) Hyperlipidemia: Comment: Patient refused to take statins, 03/14 Code(s): E78.5 - Hyperlipidemia, unspecified Category: Medical Plan: Patient refused to take statins. Low-cholesterol diet increase exercise weight loss discussed with the patient (3) Onychomycosis: Code(s): B35.1 - Tinea unguium Category: Medical Plan: Ciclopirox prescribed Orders: Orders Comprehensive [place]. Panel Fast 6 Months E78.5 - Hyperlipidemia, unspecified, I10 - Essential (primary) hypertension, Z00.00 - Encounter for general adult medical examination without abnormal findings Complete Blood Count Auto Diff 6 Months E78.5 - Hyperlipidemia, unspecified, I10 - Essential (primary) hypertension, Z00.00 - Encounter for general adult medical examination without abnormal findings TSH reflex Free T4 6 Months E78.5 - Hyperlipidemia, unspecified, I10 - Essential (primary) hypertension, Z00.00 - Encounter for general adult medical examination without abnormal findings Lipid Panel 6 Months E78.5 - Hyperlipidemia, unspecified, I10 - Essential (primary) hypertension, Z00.00 - Encounter for general adult medical examination without abnormal findings Vitamin D 25-OH Total 6 Months E78.5 - Hyperlipidemia, unspecified, I10 - Essential (primary) hypertension, Z00.00 - Encounter for general adult medical examination without abnormal findings Medications: New ciclopirox 8% 1 appl topical BEDTIME 6.6 mL 3RF Discontinued furosemide (Lasix) Discontinued Reason: Doctor's Order 20 mg PO DAILY 20 tabs 0RF
== END 2025-03-13 09:53 | disposition home or self-care (01) ==
LOC: HO.HMCC 09:01
PROVIDERS: PCP Internal Medicine; Visit Provider Internal Medicine
DX: I10 Essential (primary) hypertension (principal); E78.5 Hyperlipidemia, unspecified; B35.1 Tinea unguium

== ENCOUNTER → 2025-03-13 09:00 | Outpatient (BNVA) | payer OTHER, SELFPAY | PROVIDERS: PCP Internal Medicine; Visit Provider Internal Medicine | DX: I10 Essential (primary) hypertension (principal); E78.5 Hyperlipidemia, unspecified; B35.1 Tinea unguium | CPT/HCPCS: 96127 ==

== ENCOUNTER 2025-10-05 07:08 | Outpatient (REF) | payer OTHER, SELFPAY ==
[2025-10-05 11:43] LABS: MANUAL DIFF FLAG NO
[2025-10-05 11:48] LABS: Hematocrit 42.3 % (37.0-47.0); Hemoglobin 13.8 g/dl (12.0-16.0); Imm Gran Abs Auto 0.05 X10*3/uL (0.00-0.03); Imm Gran Pct Auto 0.6 % (0.0-0.4); Lymphocytes Absolute Auto 2.6 X10*3/uL (1.2-4.9); Mean Corpuscular HGB Conc 32.6 g/dl (31.0-35.0); Mean Corpuscular Hemoglobin 28.2 pg (27.0-33.0); Mean Corpuscular Volume 86.3 fL (80.0-98.0); NRBC Abs Auto 0.000 X10*3/uL (0.0-0.012); NRBC Pct Auto 0.0 /100WBC (0.0-0.2); Platelet Count 339 X10*3/uL (160-400); Red Blood Count 4.90 X10*6/uL (4.20-5.50); White Blood Count 8.6 X10*3/uL (4.8-10.8)
[2025-10-05 12:17] LABS: Alanine Aminotransferase 20 U/L (0-31); Albumin Level 4.3 g/dL (3.5-5.0); Alkaline Phosphatase 75 U/L (39-117); Anion Gap 12 (12-20); Aspartate Amino Transferase 25 U/L (5-31); Blood Urea Nitrogen 16 mg/dL (9-16); Calcium 9.6 mg/dL (8.4-10.2); Carbon Dioxide 24 mmol/L (22-29); Chloride 109 mmol/L (96-108); Cholesterol 217 mg/dL (<200); Estimated Glomerular Filt Rate > 60; HDL Cholesterol 50 mg/dL (>40); Potassium 4.4 mmol/L (3.3-5.1); Sodium 141 mmol/L (135-145); Total Protein 7.3 g/dL (6.5-8.0); Triglycerides 78 mg/dL (<150)
== END 2025-10-05 07:09 | disposition home or self-care (01) ==
LOC: HO.HMGCLDS 07:08
PROVIDERS: PCP Internal Medicine; Visit Provider Internal Medicine
DX: Z00.00 Encounter for general adult medical examination without abnormal findings (principal); I10 Essential (primary) hypertension; E78.5 Hyperlipidemia, unspecified
CPT/HCPCS: 36415; 80053; 80061; 82306; 84443; 85025

== ENCOUNTER 2025-10-10 12:18 | Outpatient (AMB) | payer OTHER, SELFPAY ==
[2025-10-10 12:40] VITALS: BP 130/70; PULSE 76; O2SAT 96; BMI 31.8
--- NOTE | 2025-10-10 12:40 | A.OFFPC_ITS ---
Vital Signs 10/10/25 12:40 Height 5 ft 6 in Weight 197 lb BMI 31.8 BP 130/70 Blood Pressure Location Lt brachial Position Sitting Pulse 76 Pulse Source Pulse Oximeter Pulse Oximetry (%) 96 Intake Visit Reasons: PE Allergies ampicillin (AMPICILLIN) Allergy (Unknown, Verified 10/10/25 12:40) rash penicillin V Allergy (Unknown, Verified 10/10/25 12:40) rash Medication List - Last Reconciled 10/10/25 by Yolie Cordero MD amlodipine 10 mg PO DAILY ciclopirox 8% 1 appl topical BEDTIME metoprolol tartrate 25 mg PO DAILY pravastatin 20 mg PO DAILY triamcinolone acetonide 0.025% 1 appl topical BID Tobacco use date assessed: 03/13/25 Fall risk assessment: No Falls in past year Last assessed Fall Risk: 10/10/25 Dental Screening Dental Screen Date: 03/13/25 HPI PE HPI Details Patient presents for physical. [facility] [place] Medical History (Updated 10/10/25 @ 14:51 by Yolie Cordero MD) Paronychia of right middle finger Colonoscopy refused Vitamin D deficiency Mammogram declined Normal Pap smear Hyperlipidemia Osteoarthritis Lower back pain Chronic insomnia HTN (hypertension) Annual physical exam Surgical History Hx of cholecystectomy Family History Father No problems noted. Mother No problems noted. Social History Housing: House Patient Tobacco Use Status: Never used Tobacco e-Cigarette/Vaping Use: Never Used service: No Current occupational status: employed Cognitive needs: No Hearing needs: No Vision needs: Yes Questionnaire Thrive Questionnaire Date Thrive assessed: 10/10/25 I am a: Patient What is your living situation today?: I have a steady place to live Within the past 12 months, did the food you bought not last and you didn't have the money to get more?: Never true Within the past 12 months, did you worry whether your food would run out before you got money to buy more?: Never true Do you have trouble paying for medicines?: No Do you have trouble getting transportation to medical appointments?: No Do you have trouble paying your heating and electricity bill?: No Do you have trouble taking care of your child, family member or friend?: No Do you have trouble with day-to-day activities such as bathing, preparing meals, shopping, managing finances, etc.?: No Are you currently unemployed and looking for a job?: No Are you interested in more education?: No Please select the resources that you would like help with: None Currently or been in a relationship where the following occur: No concerns reported THRIVE Score: 0 AUDIT C Alcohol Use Questionnaire (AUDIT-C) 1. How often do you have a drink containing alcohol?: Monthly or less 2. How many drinks containing alcohol do you have on a typical day when you are drinking?: 1 or 2 3. How often do you have six or more drinks on one occasion?: Never Total Score: 1 CLAU-7 AMB Questionnaire CLAU-7 Date CLAU - 7 assessed: 03/13/25 Feeling nervous, anxious, or on edge: 0 = Not at all Not being able to stop or control worryin = Not at all Worrying too much about different things: 0 = Not at all Trouble relaxin = Not at all Being so restless that it is hard to sit still: 0 = Not at all Becoming easily annoyed or irritable: 0 = Not at all Feeling afraid as if something awful might happen: 0 = Not at all Total CLAU-7 score (0-4 normal; 5-9 mild; 10-14 moderate; 15-21 severe): 0 Source: Developed by Drs. Chris Peterson, Sylvia Templeton, Amari Mata and colleagues, with an educational nancy from [employer]. Review of Systems Const All systems reviewed & are unremarkable except as noted in HPI and below Eyes Reports no additional complaints ENT Reports no additional complaints Card Reports no additional complaints Resp Reports no additional complaints GI Reports no additional complaints Reports no additional complaints Physical exam (Primary Care) Vital Signs: Last Vital Signs Pulse 76 10/10/25 12:40 BP 130/70 10/10/25 12:40 Pulse Ox 96 10/10/25 12:40 BMI result Body Mass Index 31.8 Tobacco/Smoking Status: Tobacco use Status Tobacco use date assessed 03/13/25 10/10/25 12:43 Patient Tobacco Use Status Never used Tobacco 10/10/25 12:43 e-Cigarette/Vaping Use Never Used 10/10/25 12:43 Thrive Assessment: Date of Thrive Assessment Date Thrive assessed 10/10/25 10/10/25 12:43 Currently or been in a relationship where the following occur: No concerns reported Const General: no acute distress HENMT Head: Yes normal to inspection Mouth: Normal oral and palatal mucosa present Eyes General: appearance normal, both eyes and all related structures Resp Effort & Inspection: normal respiratory effort Auscultation: clear to auscultation bilaterally Cardio Rhythm: regular rhythm Heart sounds: S1 normal heart sound present and S2 normal heart sound present GI Inspection: Yes normal to inspection Palpation (GI): Soft to palpation Percussion: Yes normal to percussion Auscultation: normal bowel sounds Coding Level of Care Code Est Pt Prev Care 40-64y(62754) Diagnoses Hyperlipidemia E78.5 HTN (hypertension) I10 Mammogram declined Z53.20 Annual physical exam Z00.00 Assessment & Plan Assessment & Plan (1) Hyperlipidemia: Comment: Patient refused to take statins, 03/14 Code(s): E78.5 - Hyperlipidemia, unspecified Category: Medical Plan: Pravastatin 20 mg daily will be started low-cholesterol diet discussed with the patient. Repeat lipid profile in 2 months (2) HTN (hypertension): Code(s): I10 - Essential (primary) hypertension Category: Medical Plan: Continue current medications (3) Mammogram declined: Comment: 08/2021, 02/2024, 09/2025 Code(s): Z53.20 - Procedure and treatment not carried out because of patient's decision for unspecified reasons Category: Medical Plan: Patient declined mammogram (4) Annual physical exam: Comment: Patient refused mammogram and colonoscopy Code(s): Z00.00 - Encounter for general adult medical examination without abnormal findings Category: Medical Plan: Well-balanced diet regular physical activity discussed with the patient. She refused mammogram colonoscopy Cologuard will be ordered Orders: Orders Lipid Panel 2 Months E78.5 - Hyperlipidemia, unspecified, I10 - Essential (primary) hypertension Comprehensive [place]. Panel Fast 2 Months E78.5 - Hyperlipidemia, unspecified, I10 - Essential (primary) hypertension Referrals Cologuard Test Z12.11 - Encounter for screening for malignant neoplasm of colon, Z12.12 - Encounter for screening for malignant neoplasm of rectum Medications: New pravastatin 20 mg PO DAILY 90 tabs 1RF Refilled amlodipine at bedtime 10 mg PO DAILY 90 tabs 3RF metoprolol tartrate take 1 tablet by mouth daily with food 25 mg PO DAILY 90 tabs 3RF
== END 2025-10-10 14:53 | disposition home or self-care (01) ==
LOC: HO.HMCC 12:18
PROVIDERS: PCP Internal Medicine; Visit Provider Internal Medicine
DX: Z00.00 Encounter for general adult medical examination without abnormal findings (principal); E78.5 Hyperlipidemia, unspecified; I10 Essential (primary) hypertension; Z53.20 Procedure and treatment not carried out because of patient's decision for unspecified reasons